=== PATIENT | male | born 1965 | race Caucasian/White ===

== ENCOUNTER → 2022-11-22 11:21 | Outpatient (BNVA) | payer BC, SELFPAY | PROVIDERS: Family Provider Internal Medicine; PCP Family Medicine; Visit Provider Family Medicine | DX: E78.2 Mixed hyperlipidemia (principal); E11.9 Type 2 diabetes mellitus without complications; Z76.89 Persons encountering health services in other specified circumstances; Z12.5 Encounter for screening for malignant neoplasm of prostate; Z11.4 Encounter for screening for human immunodeficiency virus [HIV]; Z11.59 Encounter for screening for other viral diseases | CPT/HCPCS: 80053; 80061; 82043; 83036; 84443; 85025; 86803; 87806; G0103 ==

== ENCOUNTER 2023-01-12 15:25 | Emergency (ER) | payer BC, SELFPAY ==
[2023-01-12 15:29] VITALS: BP 126/87; PULSE 82; RESP 14; O2SAT 94; BMI 28.1
--- NOTE | 2023-01-12 15:44 | PC.NURSE ---
assumed care of patient
--- NOTE | 2023-01-12 16:01 | XRR_ITS ---
PROCEDURE INFORMATION: Exam: XR Right Forearm Exam date and time: 01/12/2023 4:36 PM Age: 57 years old Clinical indication: Injury or trauma; Other: Laceration; Arm, lower; Right TECHNIQUE: Imaging protocol: Radiologic exam of the right forearm. Views: 2 views. COMPARISON: No relevant prior studies available. FINDINGS: Bones/joints: Normal. Soft tissues: Normal. XR/XR forearm RT 2V [id number] IMPRESSION: No acute findings.
[2023-01-12] MEDS: tetanus-dipt-pertussis 0.5 mL SDV IM (16:06)
[2023-01-12] MEDS: HYDROcodone-acetaminophen 5-325 mg Tablet 1 TAB PO (16:17)
--- NOTE | 2023-01-12 17:05 | PC.NURSE ---
report off to Ashanti Marr RN
[2023-01-12 18:03] VITALS: BP 131/88; PULSE 73; RESP 18; O2SAT 94
--- NOTE | 2023-01-12 22:14 | ED_ITS ---
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 He admitted that there was quite a lot of bleeding originally but, he has been holding pressure with a towel. He is not on any blood thinners. He does not know when his last tetanus immunization was. Review of Systems General: Reports: 10 or more systems reviewed and unremarkable except in HPI and below PFSH ED PFSH: Social History Smoking and tobacco status: never smoked Second hand smoke exposure: No Smoking risk assessment/counseling performed?: No Alcohol intake: never Desire information about alcohol rehabilitation?: No Counseling given: No Substance/Drug Use: never Desire information about substance/drug rehabilitation?: No Counseling given: No Adopted: No Caregiver/support person: No Lives independently: Yes Household members: spouse Marital status: service: No Current occupational status: employed Current occupation: [employer]. Current occupational exposures/hazards: Yes Pets and animals: No Do you think of yourself as: Straight/Heterosexual Current gender identity: Male Physical Exam Const: COMMON NORMALS: no acute distress, patient oriented x3 and alert HENMT: COMMON NORMALS: normocephalic, atraumatic and hearing grossly normal bilaterally HEAD & SCALP: normocephalic and atraumatic Eye: COMMON NORMALS: Equal, round and reactive pupils present, EOMs intact bilaterally and conjunctivae normal CONJUNCTIVA: Yes conjunctivae normal PUPIL: Yes Equal, round and reactive pupils present Neck/C-Spine: COMMON NORMALS: full ROM and no JVD Lymph: LYMPHATIC: no lymphadenopathy noted Resp: COMMON NORMALS: normal respiratory effort, No retractions and No use of accessory muscles Cardio: COMMON NORMALS: no JVD and regular rate RATE: regular rate Extremity: NARRATIVE EXTREMITY EXAM: Patient demonstrates flexion extension of the fingers on the right hand without difficulty. Full flexion extension of the right wrist. Neuro: COMMON NORMALS: patient oriented x3 SENSORIUM/ORIENTATION: Yes alert Psych: COMMON NORMALS: mental status grossly normal, Normal thought process present, cooperative and normal affect THOUGHT PROCESS: Normal thought process present Skin: COMMON NORMALS: no rashes or lesions noted and turgor normal NARRATIVE SKIN EXAM: Patient has a linear laceration to the right mid posterior forearm approximately 3 and half centimeters in length with 0.75 cm wound edge separation in the for the region. Bleeding is well controlled. GENERAL SKIN EXAM: no rashes or lesions noted and turgor normal Procedures Laceration Laceration 1: Site: upper extremity Side (If applicable): right (Posterior forearm) Size (cm): 4 Description: linear and contaminated Depth: simple, single layer (Subcutaneous fat layer visible) Local Anesthetic: lidocaine 1% Amount of anesthesia used (mL): 8 Pre-repair: wound explored, irrigated extensively (Syringe flushes with sterile saline and Betadine), deep structures intact and extensive debridement Skin layer closed with: nylon Size (cm): 4-0 Number of sutures: 9 Technique: simple, interrupted Course Vital Signs: Vital signs: Vital Signs Pulse Rate 73 01/12/23 18:03 Respiratory Rate 18 01/12/23 18:03 Blood Pressure 131/88 01/12/23 18:03 Pulse Oximetry 94 01/12/23 18:03 Oxygen Delivery Me thod Room Air 01/12/23 15:29 MDM - Wound/Laceration Medical Decision Making Patient presented to the ER today for evaluation treatment of laceration to the right forearm. X-ray was negative for signs of bony abnormality though there did appear to be some radio opaque foreign bodies within the wound. For this reason, after patient received local anesthesia, I did irrigate vigorously with sterile saline and Betadine using a syringe. Patient tolerated vigorous irrigation into the deeper levels of his wound without difficulty. I was able to easily repair the laceration with 9, nonabsorbable sutures resulting in a good wound edge approximation. Bleeding remained well controlled throughout the procedure. Wound was bandaged here in the ER and tetanus immunization updated. Given the depth of the wound I did provide a short course of some prophylactic antibiotics. We went over strict wound care and bandaging instructions until sutures are to be removed in 10 days. However, any acute concerns for infection needs to be seen and reevaluated sooner. Patient verbalizes understanding and agreement to the treatment plan. Differential Diagnosis Likely laceration and avulsion of skin Lab Data Radiology Impressions Forearm X-Ray 01/12/23 16:01 IMPRESSION: No acute findings. Discharge Plan Discharge Patient Disposition: Home Clinical Impression: Laceration of forearm, right Condition: Stable Prescriptions: New cephalexin 500 mg capsule 500 mg PO Q8H 5 Days Qty: 15 0RF Discharge Orders: Discharge ED (Routine); Ordered 01/12/23 Ordered By: Benita Torres Referrals: Kody Morin DO [Primary Care Provider] - Discharge Diet: Usual diet Discharge Activity: Increase activity as tolerated Patient Instructions: Care For Your Stitches (ED), Laceration (ED) Activity Restrictions/Additional Instructions: Radiology interpretation showed no signs of acute bony injury to your right forearm. We were able to irrigate and clean your wound prior to repair. You received 9 nonabsorbable sutures in your right forearm which need to be taken out in approximately 10 days. We recommend cleaning the wound twice a day with warm water and mild soap. We also recommend keeping it covered and bandaged anytime you are up and around-this includes working. If the bandaging becomes wet or soiled it needs to be removed, wound needs to be clean, and clean bandaging needs to be reapplied. I am treating you with a prophylactic course of antibiotics given the depth of the wound you sustained today but, as long as it is being cared for, I do believe it should heal without issue. If you have any acute concerns for swelling, redness, or draining of a thick green or yellow material, you notice a red streak up the arm or develop fever you should be seen and reevaluated sooner. Coding Level of Care Code ED Human Resources Services Specialist for Pra[facility] Pelletier
== END 2023-01-12 18:04 | disposition home or self-care (01) ==
PROVIDERS: Emergency Provider Physician Assistant; PCP Family Medicine
DX: S51.811A Laceration without foreign body of right forearm, initial encounter (principal); W22.8XXA Striking against or struck by other objects, initial encounter; Z23 Encounter for immunization
CPT/HCPCS: 12032; 73090; 90471; 90715; 99283

== ENCOUNTER 2025-04-11 06:46 | Emergency (ER) | payer OTHER, SELFPAY ==
--- NOTE | 2025-04-11 06:51 | XRR_ITS ---
PROCEDURE INFORMATION: Exam: XR Right Hand Exam date and time: 04/11/2025 7:02 AM Age: 59 years old Clinical indication: Injury or trauma; Other: Smashed ring finger under metal sheet; Blunt trauma (contusions or hematomas); Hand; Right TECHNIQUE: Imaging protocol: Radiologic exam of the right hand. Views: 3 or more views. COMPARISON: CR XR forearm RT 2V [id number] 01/12/2023 4:36 PM FINDINGS: Bones/joints: There is a comminuted mildly displaced fracture in the tuft of the 4th distal phalanx. No other fracture or dislocation demonstrated. Soft tissues: Soft tissue swelling in the distal 4th finger. XR/XR hand RT min 3V* [id number] IMPRESSION: 1. Comminuted mildly displaced fracture in the tuft of the 4th distal phalanx. 2. Soft tissue swelling in the distal 4th finger.
[2025-04-11 06:55] VITALS: BP 168/99; PULSE 77; RESP 18; TEMP 36.5; O2SAT 97
--- NOTE | 2025-04-11 07:14 | ED_ITS ---
HPI - Wound/Laceration 2 General: Chief Complaint: Wound/Laceration Stated Complaint: Rhand ring finger got pinch under a board Time Seen by Provider: 04/11/25 06:50 History of Present Illness: 59-year-old male who [facility] work [facility]. He works in a [employer] he got his right fourth finger caught in a conveyor roller. Smashed the tip of the nail as displaced from the nailbed. No active bleeding. His tetanus is up-to-date denies other injury Related Data Previous Rx's ?Medication ?Instructions ?Recorded hydrocodone 5 mg-acetaminophen 325 1 tab PO Q6H PRN pa in #10 tabs 04/11/25 mg tablet levofloxacin 500 mg tablet 500 mg PO DAILY 7 days #7 t abs 04/11/25 Allergies Allergy/AdvReac Type Severity Reaction Status Date / Time No Known Allergies Allergy Unverified 01/12/23 15:35 PFS ED 2 PFSH: Social History Smoking and tobacco/nicotine status: never used tobacco/nicotine Second hand smoke exposure: No Alcohol intake: never Substance/Drug Use: never Adopted: No Caregiver/support person: No Lives independently: Yes Household members: spouse Marital status: service: No Current occupational status: employed Current occupation: [employer]. Current occupational exposures/hazards: Yes Pets and animals: No Do you think of yourself as: Straight/Heterosexual Current gender identity: Male Physical Exam 2 Const: COMMON NORMALS: no acute distress GENERAL APPEARANCE: cooperative and comfortable ORIENTATION/CONSCIOUSNESS: Yes awake, Yes oriented to person, Yes oriented to place and Yes oriented to time HENMT: COMMON NORMALS: normocephalic, atraumatic and hearing grossly normal bilaterally HEAD & SCALP: normocephalic and atraumatic Resp: COMMON NORMALS: normal respiratory effort, No retractions, No use of accessory muscles and clear to auscultation bilaterally AUSCULTATION: clear to auscultation bilaterally Cardio: COMMON NORMALS: regular rate, regular rhythm and No murmurs present (Cardio) RATE: regular rate RHYTHM: regular rhythm Extremity: OTHER: Neuro: SENSORIUM/ORIENTATION: Yes oriented to person, Yes oriented to place and Yes oriented to time Skin: COMMON NORMALS: no rashes or lesions noted GENERAL SKIN EXAM: no rashes or lesions noted Procedures Nerve Block Nerve Block 1: Time out performed: Yes Local Anesthetic: lidocaine 1% Amount of anesthesia used (mL): 4 Side: right Nerve Blocks: digital Procedure Successful: Yes Patient Tolerated Procedure: well Complications: none Course 2 Vital Signs: Vital signs: Vital Signs Temperature 97.7 F 04/11/25 06:55 Pulse Rate 71 04/11/25 07:56 Respiratory Rate 18 04/11/25 06:55 Blood Pressure 168/99 04/11/25 06:55 Pulse Oximetry 99 04/11/25 07:56 MDM - Wound/Laceration Medical Decision Making Digital nerve block does not nail is hanging on by a bit of soft tissue it is no longer attached at the matrix. It was removed. The distal tuft is crushed there is a fracture. No exposed bone on exam. Wound irrigated finger splinted and the patient will be discharged home applied topical antibiotic ointment to the nailbed. Recommended to change dressing once a day applying topical antibiotic ointment he was given a gram of Ancef in the ER. Discharged home with oral antibiotics and referred to orthopedics. Lab Data Radiology Impressions Hand X-Ray 04/11/25 06:51 IMPRESSION: 1. Comminuted mildly displaced fracture in the tuft of the 4th distal phalanx. 2. Soft tissue swelling in the distal 4th finger. Laboratory Results Urine Opiates Screen Negative ng/mL (Negative) 04/11/25 08:26 Ur Barbiturates Screen Negative ng/mL (Negative) 04/11/25 08:26 Ur Phencyclidine Scrn Negative ng/mL (Negative) 04/11/25 08:26 Ur Amphetamines Screen Negative ng/mL (Negative) 04/11/25 08:26 U Benzodiazepines Scrn Negative ng/mL (Negative) 04/11/25 08:26 Urine Cocaine Screen Negative ng/mL (Negative) 04/11/25 08:26 U Marijuana (THC) Screen Negative ng/mL (Negative) 04/11/25 08:26 Ethyl Alcohol < 10 mg/dL (0-10) 04/11/25 07:34 All radiology interpretation(s) finalized by discharge Discharge Plan Discharge Patient Disposition: Home Clinical Impression: Open fracture of tuft of distal phalanx of finger Condition: Stable Prescriptions: New hydrocodone-acetaminophen 5-325 mg tablet 1 tab PO Q6H PRN (Reason: pain) Qty: 10 0RF levofloxacin 500 mg tablet 500 mg PO DAILY 7 Days Qty: 7 0RF Discharge Orders: Discharge ED (Routine); Ordered 04/11/25 Ordered By: Saurav Galeana Discharge Diet: Usual diet Discharge Activity: Limit activity as instructed Patient Instructions: Opioid Safety, Pain Management, Patient Portal & Gissel Instructions Activity Restrictions/Additional Instructions: Thank you for choosing [facility] for your healthcare needs today. It is very important that you follow up as instructed or that you return to the Emergency Department should you have concerns or if your condition changes or worsens in any way. Emergency department visits are focused on emergent conditions, in some cases you may require further evaluation on an outpatient basis. You were seen in the emergency room after a crush injury to your right fourth finger. The nail was nearly completely avulsed so it was removed in the emergency room. There is fracture of the very tip of the bone (distal tuft). These will heal in place and just need to be monitored. You were given prophylactic antibiotics in emergency room discharged home with oral antibiotics. Apply [id number] topical antibiotic ointment to the wound once daily keep covered and protected with the splint you were given in the emergency room. product introduction manager will make arrangements for you to follow-up with orthopedics in the office. (Please note that included in your discharge packet is information concerning opioid safety and pain management. This information is given to all patients were discharged from the ER regardless of their discharge diagnosis or the medicines they usually take or are prescribed.) Print Language: Pakistani Coding Level of Care Code ED [employer]let [employer] Operator for Praful Pelletier
[2025-04-11] MEDS: ceFAZolin 1,000 mg SDV 1000 MG IVP (07:27)
[2025-04-11 07:56] VITALS: PULSE 71; O2SAT 99
[2025-04-11 08:22] LABS: Alcohol Level < 10 mg/dL (0-10)
[2025-04-11 08:51] LABS: PCP Screen Urine Negative (Negative)
== END 2025-04-11 08:49 | disposition home or self-care (01) ==
PROVIDERS: Emergency Provider Family Medicine
DX: S62.634A Displaced fracture of distal phalanx of right ring finger, initial encounter for closed fracture (principal); W23.0XXA Caught, crushed, jammed, or pinched between moving objects, initial encounter
CPT/HCPCS: 73130; 80306; 80307; 96374; 96375; 99284; J0690; J1885; J9999